=== PATIENT | female | born 1960 | race Caucasian/White ===

== ENCOUNTER 2019-01-29 08:01 | Outpatient (CLI) | payer OTHER ==
--- NOTE | 2019-01-29 09:06 | CT ---
CT ABDOMEN AND PELVIS WITH AND WITHOUT IV CONTRAST: HISTORY: Lower abdominal pain COMPARISON: 01/11/2017 FINDINGS: The lung bases are clear. The liver, spleen, pancreas, adrenal glands are normal. 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 No calcified gallstones are seen. No free air or lymphadenopathy is noted. There is a tiny amount of free fluid in the left lower quadr ant/pelvis. The small bowel loops are not abnormally dilated. There is colonic diverticulosis. There is thickening of the wall of the sigmoid colon with pericolonic inflammatory changes in the lef t lower quadrant consistent with diverticulitis. No abnormally loculated fluid collection is seen to suggest abscess formation. The uterus is present. There are vascular calcifications without evidence of aneurysmal dilatation of the abdominal aorta. A small fat-containing ventral hernia is noted. There are degenerative changes in the spine. IMPRESSION: Sigmoid diverticulitis.
[2019-01-29] MEDS ORDERED: ISOVUE-370 76%-LOCM 1 ML ONE (16:17)
== END 2019-01-29 08:02 | disposition home or self-care (01) ==
LOC: BICCT 08:01
PROVIDERS: ATTEND Family Medicine
DX: R10.30 Lower abdominal pain, unspecified (principal); K57.30 Diverticulosis of large intestine without perforation or abscess without bleeding; Z87.19 Personal history of other diseases of the digestive system
CPT/HCPCS: 74178; Q9966

== ENCOUNTER 2019-03-01 15:31 | Outpatient (CLI) | payer OTHER ==
--- NOTE | 2019-03-01 16:07 | MMO ---
Bilateral MAMMO Bilat Screen [facility]. CLINICAL HISTORY: Patient is 58 years old and is seen for screening. VIEWS: The views performed were: bilateral craniocaudal with tomosynthesis and bilateral mediolateral oblique with tomosynthesis. FILMS COMPARED: The present examination has been compared to prior imaging studies performed at [facility] on 02/07/2012, 02/07/2013, 03/29/2014 and 07/23/2015. MAMMOGRAM FINDINGS: The breasts are heterogeneously dense, which could obscure a lesion on mammography. There are stable benign appearing calcifications seen in both breasts. There are no suspicious masses, suspicious calcifications, or new areas of architectural distortion. IMPRESSION: THERE IS NO MAMMOGRAPHIC EVIDENCE OF MALIGNANCY. A ROUTINE FOLLOW-UP MAMMOGRAM IN 1 YEAR IS RECOMMENDED. THE RESULTS OF THIS EXAM WERE SENT TO THE PATIENT. ACR BI-RADS Category 2 - Benign finding MAMMOGRAPHY NOTE: 1. A negative mammogram report should not delay a biopsy if a dominant of clinically suspicious mass is present. 2. Approximately 10% to 15% of breast cancers are not detected by mammography. 3. Adenosis and dense breasts may obscure an underlying neoplasm. Reported by: CHASE PANG MD Electonically Signed: [id number]
== END 2019-03-01 15:32 | disposition home or self-care (01) ==
LOC: BICMAMMO 15:31
PROVIDERS: ATTEND Family Medicine
DX: Z12.31 Encounter for screening mammogram for malignant neoplasm of breast (principal)
CPT/HCPCS: 77063; 77067

== ENCOUNTER 2020-03-07 12:45 | Outpatient (CLI) | payer OTHER ==
--- NOTE | 2020-03-07 13:10 | MMO ---
Bilateral MAMMO Bilat Screen [facility]. CLINICAL HISTORY: Patient is 59 years old and is seen for screening. The patient has no family history of breast cancer. The patient has no personal history of cancer. The patient has a history of right Excisional Biopsy - fibroadenoma. VIEWS: The views performed were: bilateral craniocaudal with tomosynthesis and bilateral mediolateral oblique with tomosynthesis. FILMS COMPARED: The present examination has been compared to prior imaging studies performed at [facility] on 03/01/2019, and at [facility] on 02/07/2013, 03/29/2014 and 07/23/2015. This study has been interpreted with the assistance of computer-aided detection. MAMMOGRAM FINDINGS: The breasts are heterogeneously dense, which could obscure a lesion on mammography. There are stable benign appearing calcifications seen in both breasts. There are no suspicious masses, suspicious calcifications, or new areas of architectural distortion. IMPRESSION: THERE IS NO MAMMOGRAPHIC EVIDENCE OF MALIGNANCY. A ROUTINE FOLLOW-UP MAMMOGRAM IN 1 YEAR IS RECOMMENDED. THE RESULTS OF THIS EXAM WERE SENT TO THE PATIENT. ACR BI-RADS Category 2 - Benign finding MAMMOGRAPHY NOTE: 1. A negative mammogram report should not delay a biopsy if a dominant of clinically suspicious mass is present. 2. Approximately 10% to 15% of breast cancers are not detected by mammography. 3. Adenosis and dense breasts may obscure an underlying neoplasm. Reported by: LIZA SMITH MD Electonically Signed: [id number]
== END 2020-03-07 12:46 | disposition home or self-care (01) ==
LOC: BICMAMMO 12:45
PROVIDERS: ATTEND Family Medicine
DX: Z12.31 Encounter for screening mammogram for malignant neoplasm of breast (principal); Z86.018 Personal history of other benign neoplasm; Z91.89 Other specified personal risk factors, not elsewhere classified
CPT/HCPCS: 77063; 77067

== ENCOUNTER 2021-03-10 15:12 | Outpatient (CLI) | payer OTHER | END 2021-03-10 15:13 | disposition home or self-care (01) | LOC: BICMAMMO 15:12 | PROVIDERS: ATTEND Family Medicine | DX: Z12.31 Encounter for screening mammogram for malignant neoplasm of breast (principal) | CPT/HCPCS: 77063; 77067 ==

== ENCOUNTER 2022-03-11 14:41 | Outpatient (CLI) | payer BC | END 2022-03-11 14:42 | disposition home or self-care (01) | LOC: BICMAMMO 14:41 | PROVIDERS: ATTEND Family Medicine | DX: Z12.31 Encounter for screening mammogram for malignant neoplasm of breast (principal) | CPT/HCPCS: 77063; 77067 ==

== ENCOUNTER 2022-04-06 16:28 | Outpatient (CLI) | payer BC ==
[2022-04-06 17:11] LABS: #Monocytes 0.6 10x3/uL (0.0-1.1); #Neutrophils 3.7 10x3/uL (1.5-8.4); %Basophils 0.4 % (0.0-2.0); %Eosinophils 0.6 % (0.0-6.0); %Lymphocytes 37.1 % (18.0-47.0); %Monocytes 8.9 % (0.0-10.0); %Neutrophils 52.7 % (40.0-75.0); Hemoglobin 13.2 g/dL (12.0-15.5); Mean Corpuscular HGB CONC 35.9 g/dL (32.0-36.0); Mean Corpuscular Hemoglobin 34.5 pg (27.0-33.0); Mean Corpuscular Volume 96.1 fl (81.6-98.3); Mean Platelet Volume 9.3 fl (7.4-10.4); Platelet Count 214 10x3/uL (150-450); RBC Distribution Width 13.2 % (11.5-14.5); Red Blood Cell (RBC) Count 3.83 10x6/uL (3.90-5.03)
[2022-04-06 17:15] LABS: Anion Gap 11 mmol/L (10-20); BUN (Urea Nitrogen) 9 mg/dL (9.8-20.1); Calc. Creatinine Clearance 0 mL/min (70-130); Calcium 8.9 mg/dL (7.8-10.44); Carbon Dioxide 30 mmol/L (23-31); Chloride 98 mmol/L (98-107); Estimated GFR 91; Glucose 110 mg/dL (80-115); Potassium 4.1 mmol/L (3.5-5.1); Sodium 135 mmol/L (136-145)
== END 2022-04-06 16:29 | disposition home or self-care (01) ==
LOC: LABBT 16:28
PROVIDERS: ATTEND Surgery
DX: Z01.818 Encounter for other preprocedural examination (principal); Z20.822 Contact with and (suspected) exposure to COVID-19
CPT/HCPCS: 71046; 80048; 85025; 87811; 93005; 93010

== ENCOUNTER 2023-04-08 14:16 | Outpatient (CLI) | payer BC | END 2023-04-08 14:17 | disposition home or self-care (01) | LOC: BICMAMMO 14:16 | PROVIDERS: ATTEND Family Medicine | DX: Z13.820 Encounter for screening for osteoporosis (principal); Z78.0 Asymptomatic menopausal state; M85.851 Other specified disorders of bone density and structure, right thigh; M85.852 Other specified disorders of bone density and structure, left thigh | CPT/HCPCS: 77080 ==

== ENCOUNTER 2024-04-19 12:54 | Outpatient (CLI) | payer MEDICARE | END 2024-04-19 12:55 | disposition home or self-care (01) | LOC: BICMAMMO 12:54 | PROVIDERS: ATTEND Family Medicine | DX: Z12.31 Encounter for screening mammogram for malignant neoplasm of breast (principal) | CPT/HCPCS: 77063; 77067 ==

== ENCOUNTER 2025-02-06 08:11 | Day surgery (SDC) | payer MEDICARE ==
[2025-01-28 09:28] VITALS: BMI 21.5
[2025-02-06] MEDS ORDERED: LevoFLOXacin D5W 500 mg (100 mL) BAG ONE (09:38)
[2025-02-06] MEDS ORDERED: Lidocaine 1% PF 5 ML VIAL ONE (10:59)
[2025-02-06] MEDS ORDERED: PROPOFOL 20 ML ONE (10:59)
[2025-02-06] MEDS ORDERED: Ondansetron PF 4 MG/2 ML Vial ONE (11:06)
== END 2025-02-06 13:20 | disposition home or self-care (01) ==
LOC: SDC 08:11
PROVIDERS: ATTEND Urology
PROC: 0TBB8ZX Excision of Bladder, Via Natural or Artificial Opening Endoscopic, Diagnostic (ICD-10-PCS; principal; 2025-02-06)
DX: N30.01 Acute cystitis with hematuria (principal); E78.2 Mixed hyperlipidemia; N95.2 Postmenopausal atrophic vaginitis; Q63.2 Ectopic kidney; N32.1 Vesicointestinal fistula; Z86.19 Personal history of other infectious and parasitic diseases; Z87.448 Personal history of other diseases of urinary system; Z79.899 Other long term (current) drug therapy; Z91.048 Other nonmedicinal substance allergy status
CPT/HCPCS: 52005; 52234; 74420; C1769; J1100; J1956; J2405; J2704; J3010; 88305

== ENCOUNTER 2025-02-21 13:29 | Outpatient (CLI) | payer MEDICARE ==
[2025-02-21 14:37] LABS: #Basophils 0.06 10x3/uL (0.0-0.2); #Eosinophils 0.04 10x3/uL (0.0-0.7); #Monocytes 0.58 10x3/uL (0.11-0.59); #Neutrophils 4.83 10x3/uL (1.40-6.50); %Basophils 0.8 % (0.0-1.0); %Eosinophils 0.5 % (0.0-10.0); %Lymphocytes 30.1 % (21.0-51.0); %Monocytes 7.3 % (0.0-10.0); %Neutrophils 60.9 % (42.0-75.0); Hematocrit 35.7 % (36.0-47.0); Hemoglobin 12.2 g/dL (12.0-16.0); Mean Corpuscular Hemoglobin 33.4 pg (27.0-31.0); Mean Corpuscular Volume 97.8 fL (78.0-98.0); Platelet Count 280 10x3/uL (130-400); Red Blood Cell (RBC) Count 3.65 mill/uL (4.20-5.40); White Blood Cell (WBC) Count 7.93 10x3/uL (4.8-10.8)
[2025-02-21 14:50] LABS: Anion Gap 12 mmol/L (10-20); BUN (Urea Nitrogen) 12 mg/dL (9.8-20.1); Calc. Creatinine Clearance 0 mL/min (70-130); Calcium 8.8 mg/dL (7.8-10.44); Carbon Dioxide 29 mmol/L (23-31); Chloride 96 mmol/L (98-107); Glucose 91 mg/dL (80-115); Potassium 4.3 mmol/L (3.5-5.1); Sodium 133 mmol/L (136-145)
[2025-02-21 15:04] LABS: INR-International Normal Ratio 1.0; PTT 30.8 sec (22.9-36.1); Prothrombin Time 13.1 sec (12.0-14.7)
[2025-02-21 15:10] LABS: Bacteria/HPF 2+ HPF (None Seen); Glucose, Urine (Dipstick) Normal (Negative); Leukocyte 500 Leu/uL (Negative); Protein, Urine (Dipstick) 50 mg/dL (Neg-Trace); RBC/HPF 21-50 HPF (0-3); Specific Gravity, Urine 1.012 (1.002-1.036); WBC/HPF Greater than 50 HPF (0-3)
== END 2025-02-21 13:30 | disposition home or self-care (01) ==
LOC: LABBT 13:29
PROVIDERS: ATTEND Urology
DX: Z01.812 Encounter for preprocedural laboratory examination (principal); R31.29 Other microscopic hematuria; E78.2 Mixed hyperlipidemia; Q63.2 Ectopic kidney; N39.0 Urinary tract infection, site not specified; N95.2 Postmenopausal atrophic vaginitis; K57.92 Diverticulitis of intestine, part unspecified, without perforation or abscess without bleeding; N32.1 Vesicointestinal fistula; Z86.19 Personal history of other infectious and parasitic diseases; Z87.448 Personal history of other diseases of urinary system
CPT/HCPCS: 80048; 81001; 85025; 85610; 85730; 87086

== ENCOUNTER 2025-03-06 06:04 | Inpatient (IN) | payer MEDICARE ==
[2025-02-21 13:53] VITALS: BMI 21.7
[2025-03-06] MEDS ORDERED: Lidocaine 2% 6 ML (Jelly) SYR ONE (07:05)
[2025-03-06] MEDS ORDERED: PROPOFOL 20 ML ONE (07:12)
[2025-03-06] MEDS ORDERED: Rocuronium Bromide 10 MG/ML (10ML VIAL) ONE (07:12)
[2025-03-06] MEDS ORDERED: fentaNYL PF 100 MCG/2 ML SYRINGE ONE (07:12)
[2025-03-06] MEDS ORDERED: Ondansetron PF 4 MG/2 ML Vial ONE ×2 (07:12→09:30)
[2025-03-06] MEDS ORDERED: LevoFLOXacin D5W 500 mg (100 mL) BAG ONE (07:15)
[2025-03-06] MEDS ORDERED: PHENYLEPHRINE-NS 100 MCG/ML 10 ML SYRINGE ONE (09:04)
[2025-03-06] MEDS ORDERED: SUGAMMADEX SODIUM 200 MG/2 ML VIAL ONE (09:48)
[2025-03-06] MEDS ORDERED: Sevoflurane 250 ML INH ANEST BOTTLE ONE (09:48)
[2025-03-06] MEDS ORDERED: HYDROmorphone 0.5 MG/0.5 ML SYRINGE ONE (10:23)
[2025-03-06] MEDS ORDERED: Droperidol 5 MG/2 ML VIAL ONE (10:41)
[2025-03-06] MEDS ORDERED: Bupivacaine 0.25% HCL 30 ML VIAL ONE (11:15)
[2025-03-06] MEDS ORDERED: hydrALAZINE 20 MG/ML VIAL SLOW IVP PRN (12:41)
[2025-03-06] MEDS: D5 1/2 NS w/20 mEq KCL 1,000 ML IV SCH (13:04)
[2025-03-06] MEDS: Ondansetron PF 4 MG/2 ML Vial IVP PRN (13:06)
[2025-03-06] MEDS: cefOXitin Sodium 1 GM in Sodium Chloride 0.9% 100 ML IVPB SCH (13:06)
[2025-03-06] MEDS: Acetaminophen 500 MG TAB PO SCH (13:07)
[2025-03-06] MEDS: Mirtazapine 15 MG TAB PO SCH (20:20)
[2025-03-06] MEDS: oxyCODONE 5 MG TAB PO PRN (23:36)
[2025-03-07 05:36] LABS: #Basophils Less than 0.03 10x3/uL (0.0-0.2); #Eosinophils Less than 0.03 10x3/uL (0.0-0.7); #Monocytes 0.79 10x3/uL (0.11-0.59); #Neutrophils 10.23 10x3/uL (1.40-6.50); %Basophils 0.2 % (0.0-1.0); %Eosinophils 0.0 % (0.0-10.0); %Lymphocytes 14.7 % (21.0-51.0); %Monocytes 6.1 % (0.0-10.0); %Neutrophils 78.6 % (42.0-75.0); Hematocrit 30.3 % (36.0-47.0); Hemoglobin 10.0 g/dL (12.0-16.0); Mean Corpuscular Hemoglobin 33.4 pg (27.0-31.0); Mean Corpuscular Volume 101.3 fL (78.0-98.0); Platelet Count 193 10x3/uL (130-400); Red Blood Cell (RBC) Count 2.99 mill/uL (4.20-5.40); White Blood Cell (WBC) Count 13.00 10x3/uL (4.8-10.8)
[2025-03-07 05:55] LABS: Anion Gap 8 mmol/L (10-20); BUN (Urea Nitrogen) 8 mg/dL (9.8-20.1); Calc. Creatinine Clearance 54 mL/min (70-130); Calcium 8.2 mg/dL (7.8-10.44); Carbon Dioxide 27 mmol/L (23-31); Chloride 105 mmol/L (98-107); Glucose 106 mg/dL (80-115); Potassium 4.5 mmol/L (3.5-5.1); Sodium 135 mmol/L (136-145)
[2025-03-07] MEDS: Enoxaparin 40 MG (0.4 mL) SYRINGE SC SCH (08:02)
[2025-03-07] MEDS: Pantoprazole 40 MG VIAL IVP SCH (08:03)
[2025-03-07] MEDS: cefTRIAXone\\ROCEPHIN 1 GM in Sodium Chloride 0.9% 100 ML IVPB SCH (08:04)
[2025-03-08] MEDS ORDERED: Iopamidol-370 76% 500 ML BOT (X-RAY USE) FS ONE (08:59)
[2025-03-08 15:08] VITALS: BMI 21.7
[2025-03-08] MEDS: Diphenoxylate HCl/Atropine Tablet PO SCH (21:21)
[2025-03-10 14:16] VITALS: BP 116/64; TEMP 97.9
== END 2025-03-10 14:00 | disposition home or self-care (01) | DRG 660 ==
LOC: SDC 06:04 → SURG A 12:20 → SDC 12:41 → SURG A 16:11
PROVIDERS: ADMIT Surgery; ATTEND Surgery
PROC: 0DBN0ZZ Excision of Sigmoid Colon, Open Approach (ICD-10-PCS; 2025-03-06)
PROC: 0D1B0Z4 Bypass Ileum to Cutaneous, Open Approach (ICD-10-PCS; 2025-03-06)
PROC: 0T9B70Z Drainage of Bladder with Drainage Device, Via Natural or Artificial Opening (ICD-10-PCS; 2025-03-06)
PROC: 3E033XZ Introduction of Vasopressor into Peripheral Vein, Percutaneous Approach (ICD-10-PCS; principal; 2025-03-07)
PROC: 3E03329 Introduction of Other Anti-infective into Peripheral Vein, Percutaneous Approach (ICD-10-PCS; 2025-03-07)
PROC: BT1B1ZZ Fluoroscopy of Bladder and Urethra using Low Osmolar Contrast (ICD-10-PCS; 2025-03-08)
PROC: 0T788DZ Dilation of Bilateral Ureters with Intraluminal Device, Via Natural or Artificial Opening Endoscopic (ICD-10-PCS; 2025-03-08)
PROC: BT14ZZZ Fluoroscopy of Kidneys, Ureters and Bladder (ICD-10-PCS; 2025-03-08)
DX: N32.1 Vesicointestinal fistula (principal); K57.20 Diverticulitis of large intestine with perforation and abscess without bleeding; R31.29 Other microscopic hematuria; I10 Essential (primary) hypertension; R00.1 Bradycardia, unspecified; D69.6 Thrombocytopenia, unspecified; E53.8 Deficiency of other specified B group vitamins; Q63.2 Ectopic kidney; Z88.8 Allergy status to other drugs, medicaments and biological substances; Z98.890 Other specified postprocedural states; Z90.49 Acquired absence of other specified parts of digestive tract; Z90.89 Acquired absence of other organs; K66.0 Peritoneal adhesions (postprocedural) (postinfection); Z91.048 Other nonmedicinal substance allergy status; E78.2 Mixed hyperlipidemia
CPT/HCPCS: 36415; 36416; 51600; 74420; 74430; 80048; 85025; 88307; 97139; A4333; A5063; A6258; C1713; C1769; C1776; C2617; J0665; J0694; J0696; J1100; J1171; J1650; J1790; J1956; J2250; J2405; J2470; J2704; J3010; J3480; Q0162; Q9967

== ENCOUNTER 2025-03-29 10:19 | Outpatient (CLI) | payer MEDICARE ==
[2025-03-29] MEDS ORDERED: MD-Gastroview 120 ML BOT ONE (10:33)
== END 2025-03-29 10:20 | disposition home or self-care (01) ==
LOC: RAD 10:19
PROVIDERS: ATTEND Surgery
DX: K94.13 Enterostomy malfunction (principal)
CPT/HCPCS: 74280; Q9963

== ENCOUNTER 2025-04-11 11:30 | Inpatient (IN) | payer MEDICARE ==
[2025-04-16] MEDS ORDERED: Acetaminophen 500 MG TAB ONE ×2 (08:36→13:52)
[2025-04-16] MEDS ORDERED: Scopolamine 1 mg/72 hour Patch ONE (08:42)
[2025-04-16] MEDS ORDERED: PROPOFOL 20 ML ONE (09:19)
[2025-04-16] MEDS ORDERED: fentaNYL PF 100 MCG/2 ML SYRINGE ONE (09:19)
[2025-04-16] MEDS ORDERED: Rocuronium Bromide 10 MG/ML (10ML VIAL) ONE (09:20)
[2025-04-16] MEDS ORDERED: Lidocaine 1% PF 5 ML VIAL ONE (09:20)
[2025-04-16] MEDS ORDERED: Ondansetron PF 4 MG/2 ML Vial ONE ×2 (09:51→11:35)
[2025-04-16] MEDS ORDERED: SUGAMMADEX SODIUM 200 MG/2 ML VIAL ONE (10:39)
[2025-04-16] MEDS ORDERED: Glucagon 1 MG/ML KIT IM PRN (11:11)
[2025-04-16] MEDS ORDERED: Dextrose 50% Abboject 50 ML SYRINGE SLOW IVP PRN (11:11)
[2025-04-16] MEDS ORDERED: hydrALAZINE 20 MG/ML VIAL SLOW IVP PRN (11:11)
[2025-04-16] MEDS ORDERED: Ondansetron PF 4 MG/2 ML Vial IVP PRN (11:11)
[2025-04-16] MEDS ORDERED: D5 1/2 NS w/20 mEq KCL 1,000 ML ONE (11:43)
[2025-04-16] MEDS: D5 1/2 NS w/20 mEq KCL 1,000 ML IV SCH (12:29)
[2025-04-16] MEDS ORDERED: HYDROmorphone 0.5 MG/0.5 ML SYRINGE ONE ×3 (13:48→18:03)
[2025-04-16] MEDS: Acetaminophen 500 MG TAB PO SCH (13:54)
[2025-04-16] MEDS: oxyCODONE 5 MG TAB PO PRN (21:15)
[2025-04-16] MEDS: Mirtazapine 15 MG TAB PO SCH (21:16)
[2025-04-16 22:21] VITALS: BMI 20.6
[2025-04-17] MEDS: Enoxaparin 40 MG (0.4 mL) SYRINGE SC SCH (09:57)
[2025-04-17] MEDS: Pantoprazole 40 MG DR.TAB PO SCH (09:57)
[2025-04-17 12:40] VITALS: BP 112/71; TEMP 97.3
[2025-04-19] MEDS ORDERED: PNEUMOC 20-VAL CONJ-DIP CRM/PF 0.5 ML SYRINGE IM ONE (09:00)
[2025-04-19] MEDS ORDERED: FLU (Fluad Triv) 25-26 (65UP)PF 45 MCG/0.5 ML Syringe IM ONE (09:00)
== END 2025-04-17 15:45 | disposition home or self-care (01) | DRG 330 ==
LOC: SURG A 04-16 06:40 → EDSTATUS 04-16 11:30 → SURG A 04-16 18:53
PROVIDERS: ADMIT Surgery; ATTEND Surgery
DX: K94.13 Enterostomy malfunction (principal); Q60.0 Renal agenesis, unilateral; K94.00 Colostomy complication, unspecified; E78.5 Hyperlipidemia, unspecified; D64.9 Anemia, unspecified; K21.9 Gastro-esophageal reflux disease without esophagitis; F10.90 Alcohol use, unspecified, uncomplicated; Z79.899 Other long term (current) drug therapy; Z86.0100 Personal history of colon polyps, unspecified; Z98.890 Other specified postprocedural states; Z90.89 Acquired absence of other organs; Z91.048 Other nonmedicinal substance allergy status; Z23 Encounter for immunization
CPT/HCPCS: 36416; A4314; A4649; J0694; J1100; J1171; J2250; J2550; J2704; J3010; J3480